=== PATIENT | female | born 1945 | race Two or more races ===

== ENCOUNTER 2019-03-24 11:20 | Emergency (ER) | payer OTHER ==
[~2019-03-24] VITALS: Ht 152.4 cm; Wt 75.0 kg
[2019-03-24] MEDS ORDERED: TETANUS AND DIPHTHERIA TOX/PF 0.5ML SYR (ADULT) IM ONE (13:00)
[2019-03-24] MEDS ORDERED: AMOXICILLIN/POTASSIUM CLAVULANATE 875/125MG TAB PO ONE (13:00)
[2019-03-24 15:22] VITALS: BP 162/72
== END 2019-03-24 15:30 | disposition home or self-care (01) ==
LOC: ER 11:20
DX: S91.155A Open bite of left lesser toe(s) without damage to nail, initial encounter (principal); I10 Essential (primary) hypertension; W54.0XXA Bitten by dog, initial encounter; Y93.89 Activity, other specified; Y92.89 Other specified places as the place of occurrence of the external cause; Y99.8 Other external cause status
CPT/HCPCS: 73630; 90714; 99283